=== PATIENT | male | born 1955 | race Caucasian/White ===

== ENCOUNTER 2018-12-02 12:13 | Day surgery (SDC) | payer BC ==
[2018-12-02 12:30] VITALS: BMI 25.4
[2018-12-02] MEDS ORDERED: PROPOFOL 20 ML ONE (12:55)
[2018-12-02] MEDS ORDERED: fentaNYL CITRATE 250 MCG/5 ML VIAL ONE (12:55)
[2018-12-02] MEDS ORDERED: MIDAZOLAM HCL 2 MG/2 ML SINGLE DOSE VIAL ONE ×2 (12:55)
[2018-12-02] MEDS ORDERED: ONDANSETRON 4 MG/2 ML VIAL ONE (12:56)
[2018-12-02] MEDS ORDERED: DEXAMETHASONE SOD PHOSPHATE 4 MG/1 ML VIAL ONE (12:56)
[2018-12-02] MEDS ORDERED: LIDOCAINE 1% P/F 10 MG/ML VIAL ONE (13:03)
[2018-12-02] MEDS ORDERED: LIDOCAINE HCL 1% PRESERVATIVE FREE - 30ML VIAL ONE (13:05)
[2018-12-02] MEDS ORDERED: ceFAZolin SODIUM 1 GM VIAL ONE (13:45)
[2018-12-02] MEDS ORDERED: LIDOCAINE HCL 1%, 10 MG/ML (50 mL VIAL) IJ ONE (13:49)
[2018-12-02] MEDS ORDERED: ONDANSETRON 4 MG/2 ML VIAL IVPUSH PRN (14:20)
[2018-12-02] MEDS ORDERED: ACETAMINOPHEN 325 MG TABLET (FP) PO PRN (14:23)
--- NOTE | 2018-12-02 14:28 | OP ---
Operative Note - Note: Operative Date: 12/02/18 Pre-Operative Diagnosis: Right Buttocks Abscess. Diabetes Mellitus Operation: Incision and Drainage of Right Buttocks Abscess Findings: Blood and purulent fluid expressed Loculations broken around area of abscess under the skin Post-Operative Diagnosis: Same as Pre-op Surgeon: Marquis Marte Anesthesia: Local Estimated Blood Loss (mls): 30 Operative Report Dictated: Yes
[2018-12-02] MEDS ORDERED: SODIUM CHLORIDE 1,000 ML IV SCH (14:30)
[2018-12-02] MEDS ORDERED: LACTATED RINGERS SOLUTION 1,000 ML IV SCH (14:30)
[2018-12-02] MEDS ORDERED: SODIUM CHLORIDE 0.45% 1,000 ML IV SCH (14:30)
--- NOTE | 2018-12-02 15:45 | OP ---
DATE OF OPERATION: 12/02/2018 PREOPERATIVE DIAGNOSES: 1. Abscess of the right buttocks. 2. Diabetes mellitus. POSTOPERATIVE DIAGNOSES: 1. Abscess of the right buttocks. 2. Diabetes mellitus. PROCEDURE PERFORMED: Incision, drainage of right buttocks abscess. OPERATIVE PROCEDURE: The patient was brought into the operating room, placed on the OR table in the prone position with proper padding of the upper and lower portion of the torso. The patient's right buttocks was then prepped and draped in the usual manner. The patient was given IV sedation by Anesthesia and then 1% local without epinephrine was injected into the area of the right buttocks abscess. This area was noted to be superior to the anus on the right buttocks and was approximately 4 cm from the midline. The 1% was injected into all areas circumferentially under the skin and then deeper into the skin of the loculations and abscess cavity. Once the patient was properly anesthetized, an incision was made approximately 3 cm long. There was evidence of some eroded skin in the middle of the abscess and this was debrided off of the rest of the skin. The incision was then extended in both superior and inferior direction with a clamp placed under the skin in order to spread it and that was done. Once this was done, access was now obtained to the actual abscess cavity. A culture stick was taken in the middle of the abscess cavity and sent off the field to Microbiology. At this point, clamps placed under the skin by operating surgeon in all directions circumferentially and the loculations that were surrounding the abscess were broken up. The more severe loculations were in the superior portion of the abscess, both superomedially and superolaterally. Once these were completely broken, as were the rest of the loculations, cultures were taken in this area that was deeper into the abscess cavity and sent off the field as specimen to Microbiology. At this point, some minor bleeding was noted from the subcutaneous tissue and this was controlled with electrocautery. This was followed by then packing; 1/2-inch plain packing was placed circumferentially in all areas of the abscess cavity and packed until no further bleeding and the wound was dry. Dressings were now placed over this area and tape was placed. The patient was then woken from anesthesia, turned onto his side to a stretcher, and brought out of the operating room to the recovery room in stable condition. ANESTHESIA: Local with IV sedation. SURGEON: Marquis Marte MD EXPECTED BLOOD LOSS: 30 mL Patient transferred to recovery room in stable condition. Karina GUZMAN/[id number]
[2018-12-02] MEDS ORDERED: AMPICILLIN NA/SULBACTAM NA 3 GM VIAL ONE ×2 (16:18→21:50)
[2018-12-02] MEDS ORDERED: SODIUM CHLORIDE 100 ML IVPB ONE ×2 (16:18→21:51)
[2018-12-02] MEDS: AMPICILLIN NA/SULBACTAM NA 3 GM in SODIUM CHLORIDE 100 ML IVPB SCH ×2 (16:23→21:52)
[2018-12-02] MEDS ORDERED: FAMOTIDINE 20 MG/50 ML IVPB 20 MG/50 ML MG IVPB SCH (22:00)
[2018-12-03] MEDS: AMPICILLIN NA/SULBACTAM NA 3 GM in SODIUM CHLORIDE 100 ML IVPB SCH (03:12)
[2018-12-03 07:14] VITALS: BP 113/64; PULSE 78; TEMP 98.6
[2018-12-03 08:39] LABS: HEMATOCRIT 42.7 % (35.4-49); HEMOGLOBIN 14.1 GM/dl (11.7-16.9); MCH 32.3 pg (25.7-33.7); MEAN PLT VOLUME 8.4 fl (7.5-11.1); PLATELET COUNT 246 K/MM3 (134-434); RBC 4.35 M/mm3 (4.00-5.60); RDW 12.9 % (11.9-15.9); WHITE BLOOD COUNT 8.9 K/mm3 (4.0-10.8)
[2018-12-03 08:41] LABS: ALBUMIN 3.3 g/dl (3.4-5.0); BILIRUBIN,TOTAL 0.3 mg/dl (0.2-1); CALCIUM 9.2 mg/dl (8.5-10); CREATININE 1.4 mg/dl (0.55-1.3); POTASSIUM 5.3 mmol/L (3.5-5.1); TOT PROT 6.1 g/dl (6.4-8.2)
== END 2018-12-03 10:00 | disposition home or self-care (01) ==
LOC: FASU 12:13 → FASUSAT 12:13 → FM/S 16:00 → FASUSAT 12-03 10:00
PROVIDERS: ATTEND Surgery
PROC: 0J990ZZ Drainage of Buttock Subcutaneous Tissue and Fascia, Open Approach (ICD-10-PCS; principal; 2018-12-02 12:30)
DX: L02.31 Cutaneous abscess of buttock (principal)
CPT/HCPCS: 36415; 80053; 82962; 85027; 87070; 87077; 87205; 94760